=== PATIENT | female | born 1970 | race Caucasian/White ===

== ENCOUNTER 2017-05-25 00:47 | Emergency (ER) | payer BC ==
[2017-05-25] MEDS ORDERED: Sodium Chloride 0.9% 10 ML Syringe FLUSH PRN (01:07)
[2017-05-25] MEDS ORDERED: Ondansetron 4 MG/2 ML SDV IVPUSH ONE (01:08)
[2017-05-25] MEDS ORDERED: Famotidine 20 MG/2 ML SDV IVPUSH ONE (01:08)
[2017-05-25] MEDS ORDERED: HYDROmorphone 0.5 MG/0.5 ML Syringe IVPUSH ONE (01:08)
--- NOTE | 2017-05-25 01:26 | EDM.PDOC ---
ED HPI GENERAL MEDICAL PROBLEM - General Chief Complaint: Chest Pain Stated Complaint: CHEST PAINS Time Seen by Provider: 05/25/17 00:57 Source of Information: Reports: Patient, RN Notes Reviewed - History of Present Illness INITIAL COMMENTS - FREE TEXT/NARRATIVE: 47-year-old female comes in with sudden onset of anterior chest discomfort. She describes this as a sharp shooting type discomfort of the anterior mid chest worse with deep breathing. This did awaken her from her sleep about an hour ago. She had been feeling fine yesterday with no chest pain or other unusual symptoms. She has not been coughing and also no fever or chills. No abdominal pain nausea vomiting or diaphoresis. 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 Other Treatments BUSINESS ANALYST PROJECT MANAGER: 325 mg Left Chest Pain Score (Numeric/FACES): 8 - Related Data Allergies Allergy/AdvReac Type Severity Reaction Status Date / Time No Known Allergies Allergy Verified 05/25/17 00:51 Past Medical History HEENT History: Reports: Impaired Vision Other HEENT History: Wears glasses Endocrine/Metabolic History: Reports: Hypothyroidism - Past Surgical History Female Surgical History: Reports: Hysterectomy Social & Family History - Tobacco Use Smoking Status *Q: Never Smoker - Recreational Drug Use Recreational Drug Use: No ED ROS GENERAL - Review of Systems Review Of Systems: See Below Constitutional: Denies: Fever, Chills, Diaphoresis HEENT: Reports: No Symptoms Respiratory: Reports: Pleuritic Chest Pain. Denies: Shortness of Breath, Wheezing, Cough Cardiovascular: Reports: Chest Pain. Denies: Lightheadedness, Palpitations GI/Abdominal: Reports: Nausea (Very mild initially, gone). Denies: Abdominal Pain, Vomiting Musculoskeletal: Reports: Back Pain (There is some radiation of discomfort to her back). Denies: Shoulder Pain, Arm Pain, Leg Pain, Joint Pain Neurological: Reports: Numbness (She had some mild paresthesias left hand and arm initially, that is all now gone). Denies: Trouble Speaking, Weakness ED EXAM, GENERAL - Physical Exam Exam: See Below General Appearance: Alert, Anxious (Mild), Mild Distress Throat/Mouth: Normal Inspection, Normal Oropharynx Head: Atraumatic Neck: Supple, Full Range of Motion Respiratory/Chest: No Respiratory Distress, Lungs Clear, Normal Breath Sounds Cardiovascular: Regular Rate, Rhythm GI/Abdominal: Soft, Non-Tender. No: Guarding Back Exam: No: CVA Tenderness (L), CVA Tenderness (R) Extremities: Normal Inspection. No: Pedal Edema, Leg Pain Neurological: Alert, Oriented, No Motor/Sensory Deficits Skin Exam: Warm, Dry, Normal Color EKG INTERPRETATION EKG Date: 05/25/17 Rhythm: NSR [place]: Normal P-Wave: Present QRS: Other (There are very small Q waves leads 3) ST-T: Normal Course - Vital Signs Last Recorded V/S: Last Vital Signs Temp 96.8 F 05/25/17 00:51 Pulse 78 05/25/17 00:51 Resp 13 05/25/17 00:51 BP 166/84 H 05/25/17 00:51 Pulse Ox 98 05/25/17 00:51 - Orders/Labs/Meds Orders: Active Orders 24 hr Category Date Time Status EKG 12 Lead [EKG Documentation Completion] [RC] STAT Care 05/25/17 01:07 Active Peripheral IV Care [RC] . DIRECTED Care 05/25/17 01:07 Active Chest 1V Frontal [CR] Stat Exams 05/25/17 01:07 Taken Sodium Chloride 0.9% [Saline Flush] Med 05/25/17 01:07 Active 10 ml FLUSH ASDIRECTED PRN Peripheral IV Insertion Adult [OM.PC] Stat Oth 05/25/17 01:07 Ordered Medication Orders Sodium Chloride (Saline Flush) 10 ml FLUSH ASDIRECTED PRN PRN Reason: Keep Vein Open Last Admin: 05/25/17 01:18 Dose: 10 ml Labs: Laboratory Tests 05/25/17 05/25/17 05/25/17 Range/Units 00:55 00:55 00:55 WBC 7.74 (3.98-10.04) K/mm3 RBC 5.08 (3.98-5.22) M/mm3 Hgb 15.6 (11.2-15.7) gm/L Hct 45.1 H (34.1-44.9) % MCV 88.8 (79.4-94.8) fl MCH 30.7 (25.6-32.2) pg MCHC 34.6 (32.2-35.5) g/dl RDW Std Deviation 42.1 (36.4-46.3) fL Plt Count 239 (182-369) K/mm3 MPV 10.5 (9.4-12.3) fl Neut % (Auto) 61.6 (34.0-71.1) % Lymph % (Auto) 26.5 (19.3-51.7) % [place] % (Auto) 9.6 (4.7-12.5) % Eos % (Auto) 1.9 (0.7-5.8) Baso % (Auto) 0.4 (0.1-1.2) % Neut # (Auto) 4.77 (1.56-6.13) K/mm3 Lymph # (Auto) 2.05 (1.18-3.74) K/mm3 [place] # (Auto) 0.74 H (0.24-0.36) K/mm3 Eos # (Auto) 0.15 (0.04-0.36) K/mm3 Baso # (Auto) 0.03 (0.01-0.08) K/mm3 D-Dimer, Quantitative 0.31 (0.19-0.59) mg/L Troponin I < 0.017 (0.00-0.056) ng/mL Meds: Medications Generic Name Dose Route Start Last Admin Trade Name Freq PRN Reason Stop Dose Admin Sodium Chloride 10 ml 05/25/17 01:07 05/25/17 01:18 Saline Flush FLUSH 10 ml ASDIRECTED PRN Administration Keep Vein Open Discontinued Medications Generic Name Dose Route Start Last Admin Trade Name Freq PRN Reason Stop Dose Admin Al Hydroxide/Mg Hydroxide 30 0 ml 05/25/17 01:54 05/25/17 02:01 ml/ Lidocaine HCl 15 ml PO 05/25/17 01:55 45 ml ONETIME ONE Administration Famotidine 20 mg 05/25/17 01:08 05/25/17 01:18 Pepcid IVPUSH 05/25/17 01:09 20 mg ONETIME ONE Administration Hydromorphone HCl 0.5 mg 05/25/17 01:08 05/25/17 01:18 Dilaudid IVPUSH 05/25/17 01:09 0.5 mg ONETIME ONE Administration Ondansetron HCl 4 mg 05/25/17 01:08 05/25/17 01:18 Zofran IVPUSH 05/25/17 01:09 4 mg ONETIME ONE Administration - Re-Assessments/Exams Free Text/Narrative Re-Assessment/Exam: 05/25/17 01:30 CXR normal. 05/25/17 02:00. Labs came back normal troponin and d-dimer both negative. EKG normal. She's been in sinus rhythm no ectopy. She has had fairly good relief with medications given. She still does have some anterior mid chest discomfort. Have ordered GI cocktail.. 2:15. Discomfort completely gone, discharge instructions as documented Departure - Departure Time of Disposition: 02:11 Disposition: Home, Self-Care 01 Condition: Fair Clinical Impression: Atypical chest pain GERD (gastroesophageal reflux disease) Qualifiers: Esophagitis presence: esophagitis presence not specified Qualified Code(s): K21.9 - Gastro-esophageal reflux disease without esophagitis Referrals: Jennifer Jacques PA-C [Primary Care Provider] - Forms: ED Department Discharge Additional Instructions: Take Pepcid 10 or 20 mg twice daily for the next 5-7 days and thereafter as needed, you may also take liquid Maalox or Mylanta if needed for further discomfort of this nature, follow-up clinic as needed, return to ED if symptoms worsening in any way - My Orders Last 24 Hours: My Active Orders 05/25/17 01:07 EKG 12 Lead [EKG Documentation Completion] [RC] STAT Peripheral IV Care [RC] . DIRECTED Chest 1V Frontal [CR] Stat Sodium Chloride 0.9% [Saline Flush] 10 ml FLUSH ASDIRECTED PRN Peripheral IV Insertion Adult [OM.PC] Stat - Assessment/Plan Last 24 Hours: My Active Orders 05/25/17 01:07 EKG 12 Lead [EKG Documentation Completion] [RC] STAT Peripheral IV Care [RC] . DIRECTED Chest 1V Frontal [CR] Stat Sodium Chloride 0.9% [Saline Flush] 10 ml FLUSH ASDIRECTED PRN Peripheral IV Insertion Adult [OM.PC] Stat
[2017-05-25] MEDS ORDERED: Alum Hydrox/Mag Hydrox/Simeth 30 ML, Lidocaine 2% 15 ML PO ONE ×2 (01:54)
--- NOTE | 2017-05-25 07:31 | CR ---
Chest: Portable view of the chest was obtained. Comparison: No prior chest x-ray. Heart size and mediastinum are within normal limits. Lungs are clear. Bony structures are grossly intact. Impression: 1. Nothing acute is identified on portable chest x-ray. Diagnostic code #1
== END 2017-05-25 02:23 | disposition home or self-care (01) ==
LOC: JD.ED 00:47
DX: K21.9 Gastro-esophageal reflux disease without esophagitis (principal); E03.9 Hypothyroidism, unspecified
CPT/HCPCS: 36415; 71010; 84484; 85025; 85379; 93005; 96374; 96375; 99285; A9270; J1170; J2405; J7050; 93010; 99284-25

== ENCOUNTER 2019-08-22 16:16 | Emergency (ER) | payer BC ==
[2019-08-22] MEDS ORDERED: Sodium Chloride 0.9% 10 ML Syringe FLUSH PRN (16:47)
[2019-08-22] MEDS ORDERED: Ondansetron 4 MG/2 ML SDV IVPUSH ONE (16:47)
[2019-08-22] MEDS ORDERED: Sodium Chloride 0.9% 1,000 ML IV SCH (17:00)
--- NOTE | 2019-08-22 17:29 | EDM.PDOC ---
ED HPI GENERAL MEDICAL PROBLEM - General Chief Complaint: Gastrointestinal Problem Stated Complaint: UNABLE TO KEEP FOOD OR WATER DOWN Time Seen by Provider: 08/22/19 16:38 Source of Information: Reports: Patient History Limitations: Reports: No Limitations - History of Present Illness INITIAL COMMENTS - FREE TEXT/NARRATIVE: The patient presents with a cough, fever, chills, nausea and vomiting. This started a few days ago with the fever, chills and cough and today she developed the nausea and vomiting. She has a little pain to her upper abdomen. She also has pain to her upper back. She has not been able to keep anything down. The walk in clinic sent her over. She has no chest pain or shortness of breath. She has no dysuria. She has no medical problems. Onset: Gradual Duration: Day(s): Location: Reports: Abdomen, Back Quality: Reports: Stabbing Severity: Mild Improves with: Reports: None Worsens with: Reports: None Associated Symptoms: Reports: Cough, Fever/Chills, Nausea/Vomiting. Denies: Chest Pain, Headaches, Shortness of Breath Middle Back Pain Score (Numeric/FACES): 7 Middle Abdomen Pain Score (Numeric/FACES): 3 - Related Data Allergies Allergy/AdvReac Type Severity Reaction Status Date / Time No Known Allergies Allergy Verified 05/25/17 00:51 Home Meds: Home Meds Azithromycin [Zithromax] 250 mg PO DAILY #6 tab 08/22/19 [Rx] Codeine/Promethazine [Phenergan with Codeine] 5 - 10 ml PO Q6HR PRN #300 ml 05/03 [Rx] Levothyroxine 50 mcg PO DAILY 08/22/19 [History] Ondansetron [Zofran ODT] 4 mg PO Q6H PRN #20 tab.dis 08/22/19 [Rx] Spironolactone 50 mg PO DAILY 08/22/19 [History] Past Medical History HEENT History: Reports: Impaired Vision Other HEENT History: Wears glasses Endocrine/Metabolic History: Reports: Hypothyroidism Dermatologic History: Reports: Other (See Below) Other Dermatologic History: excessive hair-on spirnolactone - Past Surgical History GI Surgical History: Reports: Cholecystectomy Female Surgical History: Reports: Hysterectomy Social & Family History - Tobacco Use Smoking Status *Q: Never Smoker - Caffeine Use Caffeine Use: Reports: None - Recreational Drug Use Recreational Drug Use: No ED ROS GENERAL - Review of Systems Review Of Systems: See Below Constitutional: Reports: Fever, Chills HEENT: Reports: No Symptoms Respiratory: Reports: Cough. Denies: Shortness of Breath Cardiovascular: Reports: No Symptoms Endocrine: Reports: No Symptoms GI/Abdominal: Reports: Abdominal Pain, Nausea, Vomiting : Reports: No Symptoms Musculoskeletal: Reports: Back Pain ED EXAM, GI/ABD - Physical Exam Exam: See Below Exam Limited By: No Limitations General Appearance: Alert, No Apparent Distress Ears: Normal External Exam Nose: Normal Inspection Head: Atraumatic, Normocephalic Neck: Normal Inspection Respiratory/Chest: No Respiratory Distress, Lungs Clear, Normal Breath Sounds Cardiovascular: Regular Rate, Rhythm, No Edema, No Murmur GI/Abdominal Exam: Soft, Non-Tender, No Organomegaly, No Mass Back Exam: Normal Inspection Extremities: Normal Inspection Course - Vital Signs Last Recorded V/S: Last Vital Signs Temp 97.6 F 08/22/19 16:49 Pulse 121 H 08/22/19 16:49 Resp 20 08/22/19 16:49 BP 142/84 H 08/22/19 16:49 Pulse Ox 95 08/22/19 16:49 - Orders/Labs/Meds Orders: Active Orders 24 hr Category Date Time Status Cardiac Monitoring [RC] . DIRECTED Care 08/22/19 16:47 Active Peripheral IV Care [RC] . DIRECTED Care 08/22/19 16:48 Active Chest 2V [CR] Stat Exams 08/22/19 16:48 Taken Sodium Chloride 0.9% [Normal Saline] 1,000 ml Med 08/22/19 17:00 Active IV .BOLUS Sodium Chloride 0.9% [Saline Flush] Med 08/22/19 16:47 Active 10 ml FLUSH ASDIRECTED PRN ED Antiemetic Medication Reflex [OM.PC] Stat Oth 08/22/19 16:48 Ordered Peripheral IV Insertion Adult [OM.PC] Stat Oth 08/22/19 16:47 Ordered Medication Orders Sodium Chloride (Normal Saline) 1,000 mls @ 1,000 mls/hr IV .BOLUS GERARD Last Admin: 08/22/19 16:58 Dose: 1,000 mls/hr Sodium Chloride (Saline Flush) 10 ml FLUSH ASDIRECTED PRN PRN Reason: Keep Vein Open Last Admin: 08/22/19 16:58 Dose: 10 ml Labs: Laboratory Tests 08/22/19 08/22/19 Range/Units 16:57 16:57 WBC 12.27 H (3.98-10.04) K/mm3 RBC 5.16 (3.98-5.22) M/mm3 Hgb 15.4 (11.2-15.7) gm/dl Hct 45.9 H (34.1-44.9) % MCV 89.0 (79.4-94.8) fl MCH 29.8 (25.6-32.2) pg MCHC 33.6 (32.2-35.5) g/dl RDW Std Deviation 43.8 (36.4-46.3) fL Plt Count 267 (182-369) K/mm3 MPV 10.0 (9.4-12.3) fl Neut % (Auto) 92.0 H (34.0-71.1) % Lymph % (Auto) 1.9 L (19.3-51.7) % [place] % (Auto) 5.6 (4.7-12.5) % Eos % (Auto) 0.1 L (0.7-5.8) Baso % (Auto) 0.2 (0.1-1.2) % Neut # (Auto) 11.30 H (1.56-6.13) K/mm3 Lymph # (Auto) 0.23 L (1.18-3.74) K/mm3 [place] # (Auto) 0.69 H (0.24-0.36) K/mm3 Eos # (Auto) 0.01 L (0.04-0.36) K/mm3 Baso # (Auto) 0.02 (0.01-0.08) K/mm3 Manual Slide Review Abnormal smear Sodium 137 (136-145) mEq/L Potassium 3.6 (3.5-5.1) mEq/L Chloride 98 (98-107) mEq/L Carbon Dioxide 26 (21-32) mEq/L Anion Gap 16.6 H (5-15) BUN 12 (7-18) mg/dL Creatinine 0.8 (0.55-1.02) mg/dL Est Cr Clr Drug Dosing 77.38 mL/min Estimated GFR (MDRD) > 60 (>60) mL/min BUN/Creatinine Ratio 15.0 (14-18) Glucose 110 H (74-106) mg/dL Calcium 9.1 (8.5-10.1) mg/dL Total Bilirubin 1.7 H (0.2-1.0) mg/dL AST 20 (15-37) U/L ALT 36 (14-59) U/L Alkaline Phosphatase 74 (46-116) U/L Total Protein 8.3 H (6.4-8.2) g/dl Albumin 4.2 (3.4-5.0) g/dl Globulin 4.1 gm/dL Albumin/Globulin Ratio 1.0 (1-2) Meds: Medications Generic Name Dose Route Start Last Admin Trade Name Freq PRN Reason Stop Dose Admin Sodium Chloride 1,000 mls @ 1,000 mls/hr 08/22/19 17:00 08/22/19 16:58 Normal Saline IV 1,000 mls/hr .BOLUS GERARD Administration Sodium Chloride 10 ml 08/22/19 16:47 08/22/19 16:58 Saline Flush FLUSH 10 ml ASDIRECTED PRN Administration Keep Vein Open Discontinued Medications Generic Name Dose Route Start Last Admin Trade Name Freq PRN Reason Stop Dose Admin Ondansetron HCl 4 mg 08/22/19 16:47 08/22/19 16:58 Zofran IVPUSH 08/22/19 16:48 4 mg ONETIME ONE Administration - Re-Assessments/Exams Free Text/Narrative Re-Assessment/Exam: 08/22/19 17:31 I ordered an IV NS 1L bolus, zofran 4mg IV, CXR, influenza and labs. Her CXR shows an infiltrate in the left lower lobe. 08/22/19 18:09 Her WBC was elevated at 12.27. Her anion gap was elevated at 16.6. Her glucose was 110. Her total bili was elevated at 1.7. Her CXR shows a small infiltrate in the left lower lobe. 08/22/19 18:12 Influenza is negative. Departure - Departure Time of Disposition: 18:15 Disposition: Home, Self-Care 01 Condition: Good Clinical Impression: Pneumonia Qualifiers: Pneumonia type: due to unspecified organism Laterality: left Lung location: lower lobe of lung Qualified Code(s): J18.9 - Pneumonia, unspecified organism Vomiting Qualifiers: Vomiting type: unspecified Vomiting Intractability: non-intractable Nausea presence: without nausea Qualified Code(s): R11.11 - Vomiting without nausea - Discharge Information *PRESCRIPTION DRUG MONITORING PROGRAM REVIEWED*: Not Applicable *COPY OF PRESCRIPTION DRUG MONITORING REPORT IN PATIENT TYRELL: Not Applicable Prescriptions: Codeine/Promethazine [Phenergan with Codeine] 5 - 10 ml PO Q6HR PRN #300 ml PRN Reason: Cough Azithromycin [Zithromax] 250 mg PO DAILY #6 tab Ondansetron [Zofran ODT] 4 mg PO Q6H PRN #20 tab.dis PRN Reason: Nausea\vomiting Referrals: PCP,Not In Area [Primary Care Provider] - Forms: ED Department Discharge Additional Instructions: Take the zithromax 2 pills on day 1 and 1 pill on day 2 through 5. Take the zofran every 6 hours as needed for nausea and vomiting. Drink plenty of fluids. Take the phenergan with codeine 5 to 10mls every 6 hours as needed for a cough. Please return if you are worse. Sepsis Event Note - Evaluation Sepsis Screening Result: No Definite Risk - Focused Exam Vital Signs: Vital Signs Temp Pulse Resp BP Pulse Ox 08/22/19 16:49 97.6 F 121 H 20 142/84 H 95 Date Exam was Performed: 08/22/19 Time Exam was Performed: 18:12 - My Orders Last 24 Hours: My Active Orders 08/22/19 16:47 Cardiac Monitoring [RC] . DIRECTED Sodium Chloride 0.9% [Saline Flush] 10 ml FLUSH ASDIRECTED PRN Peripheral IV Insertion Adult [OM.PC] Stat 08/22/19 16:48 Peripheral IV Care [RC] . DIRECTED Chest 2V [CR] Stat ED Antiemetic Medication Reflex [OM.PC] Stat 08/22/19 17:00 Sodium Chloride 0.9% [Normal Saline] 1,000 ml IV .BOLUS - Assessment/Plan Last 24 Hours: My Active Orders 08/22/19 16:47 Cardiac Monitoring [RC] . DIRECTED Sodium Chloride 0.9% [Saline Flush] 10 ml FLUSH ASDIRECTED PRN Peripheral IV Insertion Adult [OM.PC] Stat 08/22/19 16:48 Peripheral IV Care [RC] . DIRECTED Chest 2V [CR] Stat ED Antiemetic Medication Reflex [OM.PC] Stat 08/22/19 17:00 Sodium Chloride 0.9% [Normal Saline] 1,000 ml IV .BOLUS
--- NOTE | 2019-08-23 07:50 | CR ---
Chest: Two views of the chest were obtained. Comparison: Prior chest x-ray of 05/25/17. Heart size and mediastinum are normal. Slight atelectasis is noted within the left base. Lungs otherwise are clear. Mild degenerative change is noted within the spine. Impression: 1. Findings as noted above. Nothing acute is appreciated. Diagnostic code #2 This report was dictated in [place] Standard Time
== END 2019-08-22 19:03 | disposition home or self-care (01) ==
LOC: JD.ED 16:16
DX: J18.9 Pneumonia, unspecified organism (principal); R11.11 Vomiting without nausea; E03.9 Hypothyroidism, unspecified; Z79.890 Hormone replacement therapy
CPT/HCPCS: 36415; 71046; 80053; 85025; 87804; 96361; 96374; 99284; J2405; J7030; 99283

== ENCOUNTER 2025-04-28 16:09 | Emergency (ER) | payer OTHER, BC | END 2025-04-28 19:17 | disposition home or self-care (01) | LOC: JD.ED 16:09 | DX: M54.2 Cervicalgia (principal); E03.9 Hypothyroidism, unspecified; Z79.890 Hormone replacement therapy; Z79.899 Other long term (current) drug therapy; Z90.49 Acquired absence of other specified parts of digestive tract; Z90.710 Acquired absence of both cervix and uterus; V43.93XA Unspecified car occupant injured in collision with pick-up truck in traffic accident, initial encounter | CPT/HCPCS: 72125; 99283; A9270 ==